=== PATIENT | female | born 1975 | race Caucasian/White ===

== ENCOUNTER 2019-01-26 07:55 | Emergency (ER) | payer BC ==
[2019-01-26] MEDS ORDERED: HYDROmorphone 0.5 MG/0.5 ML Syringe IVPUSH ONE ×2 (08:01→09:34)
[2019-01-26 08:03] VITALS: BP 134/87; PULSE 82
--- NOTE | 2019-01-26 08:06 | EDM.PDOC ---
ED HPI GENERAL MEDICAL PROBLEM - General Chief Complaint: Genitourinary Problem Stated Complaint: [facility] Time Seen by Provider: 01/26/19 07:56 Source of Information: Reports: Patient History Limitations: Reports: No Limitations - History of Present Illness INITIAL COMMENTS - FREE TEXT/NARRATIVE: 43-year-old female presents the ED per ambulance from [place]. He states she awoke around 0230 hours with pressure sensation in her left flank and upper abdomen on the left side. By 4:30 she was coming up in the position vomiting with severe pain. Emesis was summoned around 0630 hrs. She has received Toradol 30 mg IV Dilaudid 1 mg IV a Zofran 4 mg IV. At present her pain is down to a 4 out of 10. Still experiencing some colicky component to the pain. She has had renal colic 2 in the past one was possibly 10 years ago in the last time was 2 years ago. Told that there are several stones in the kidneys that may be problematic in the future. She has not noticed any hematuria in the urine. Onset: Today Onset Date: 01/26/19 Onset Time: 02:30 Duration: Hour(s): Location: Reports: Abdomen, Back (Left upper abdomen), Radiates to ( left flankradiates down to the bulbar and urethra. 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 (see below) (Paramedics have given her Toradol 30 mg IV followed by Dilaudid 1 mg IV and Zofran 4 mg IV.) Left Flank Pain Score (Numeric/FACES): 4 - Related Data Allergies Allergy/AdvReac Type Severity Reaction Status Date / Time No Known Allergies Allergy Verified 01/26/19 08:04 Home Meds: Home Meds Levothyroxine 75 mcg PO ACBREAKFAST 07/16/15 [History] traZODone 50 mg PO BEDTIME 07/16/15 [History] Ondansetron [Zofran] 4 mg BUCCAL Q6H PRN #8 tab 01/26/19 [Rx] Tamsulosin HCl [Flomax] 0.4 mg PO DAILY #4 cap.er.24h 01/26/19 [Rx] oxyCODONE HCl/Acetaminophen [Percocet 5-325 mg Tablet] 1 - 2 each PO Q4H PRN # 20 tablet 01/26/19 [Rx] Past Medical History Genitourinary History: Reports: Renal Calculus Endocrine/Metabolic History: Reports: Hypothyroidism - Past Surgical History Musculoskeletal Surgical History: Reports: Shoulder Surgery (Left shoulder surgery for repair of rotator cuff tear.) Social & Family History - Living Situation & Occupation Living situation: Reports: Occupation: Unemployed ED ROS GENERAL - Review of Systems Review Of Systems: See Below Constitutional: Reports: Malaise, Weakness, Fatigue, Decreased Appetite. Denies : Fever, Chills HEENT: Reports: No Symptoms Respiratory: Reports: No Symptoms Cardiovascular: Reports: No Symptoms Endocrine: Reports: Fatigue GI/Abdominal: Reports: Abdominal Pain (Left upper quadrant abdominal pain rating down towards the left groin and vulva.), Diarrhea (Stools 2 loose but not diarrhea), Decreased Appetite, Nausea, Vomiting (Did vomited 4 times of bilious material at home about 4:30 to 5:30.) : Reports: Flank Pain, Frequency. Denies: Dysuria (Left flank pain) Musculoskeletal: Reports: Back Pain Skin: Reports: No Symptoms (Left flank pain) Neurological: Reports: No Symptoms Psychiatric: Reports: No Symptoms Hematologic/Lymphatic: Reports: No Symptoms Immunologic: Reports: No Symptoms ED EXAM, GI/ABD - Physical Exam Exam: See Below Exam Limited By: No Limitations General Appearance: Alert, WD/WN, Mild Distress, Other (Still having a hard time holding still due to the pain in her left flank.) Eyes: Bilateral: Normal Appearance (No scleral icterus. No peripheral pallor) Throat/Mouth: Other (Mouth is mildly dry.) Respiratory/Chest: No Respiratory Distress, Lungs Clear, Normal Breath Sounds GI/Abdominal Exam: Soft, Non-Tender ( to palpation), No Organomegaly, No Mass, Pelvis Stable, Abnormal Bowel Sounds (Bowel sounds are fairly quiet sent in all 4 quadrants.), Other (Abdominal wall musculature is firm) Back Exam: Normal Inspection, CVA Tenderness (L) (Mild). No: CVA Tenderness (R) , Decreased Range of Motion Extremities: Normal Inspection, Normal Range of Motion, Non-Tender Neurological: Alert, Oriented, CN II-XII Intact, Normal Cognition, Normal Gait Psychiatric: Normal Affect, Normal Mood Skin Exam: Warm, Dry, Intact, Normal Color, No Rash Course - Vital Signs Last Recorded V/S: Last Vital Signs Temp 36.4 C 01/26/19 08:01 Pulse 82 01/26/19 08:01 Resp 18 01/26/19 08:01 BP 134/87 01/26/19 08:01 Pulse Ox 100 01/26/19 08:01 - Orders/Labs/Meds Orders: Active Orders 24 hr Category Date Time Status Abdomen Pelvis wo Cont [CT] Stat Exams 01/26/19 08:02 Taken Labs: Laboratory Tests 01/26/19 Range/Units 09:27 Urine Color Yellow (Yellow) Urine Appearance Clear (Clear) Urine pH 6.0 (5.0-8.0) Ur Specific [place] > or = 1.030 (1.005-1.030) Urine Protein 1+ H (Negative) Urine Glucose (UA) Negative (Negative) Urine Ketones Negative (Negative) Urine Occult Blood 3+ H (Negative) Urine Nitrite Negative (Negative) Urine Bilirubin Negative (Negative) Urine Urobilinogen 0.2 (0.2-1.0) Ur Leukocyte Esterase Negative (Negative) Urine RBC 10-20 H (0-5) /hpf Urine WBC 0-5 (0-5) /hpf Ur Squamous Epith Cells 5-10 H (0-5) /hpf Amorphous Sediment Few H (NOT SEEN) /hpf Urine Bacteria Moderate H (FEW) /hpf Hyaline Casts 0-5 (0-5) /lpf Urine Mucus Moderate H (FEW) /hpf Meds: Medications Discontinued Medications Generic Name Dose Route Start Last Admin Trade Name Freq PRN Reason Stop Dose Admin Hydromorphone HCl 0.5 mg 01/26/19 08:01 01/26/19 08:09 Dilaudid IVPUSH 01/26/19 08:02 0.5 mg ONETIME ONE Administration Hydromorphone HCl 0.5 mg 01/26/19 09:34 01/26/19 09:45 Dilaudid IVPUSH 01/26/19 09:35 0.5 mg ONETIME ONE Administration Sodium Chloride 1,000 mls @ 150 mls/hr 01/26/19 08:15 01/26/19 08:09 Normal Saline IV 150 mls/hr ASDIRECTED PAUL Administration Tamsulosin HCl 0.4 mg 01/26/19 10:04 Flomax PO 01/26/19 10:05 ONETIME ONE - Radiology Interpretation Free Text/Narrative:: 43-year-old female presents to the ED with acute onset of severe left flank upper abdominal pain about 0-30 hours this morning. Pain worsened by 4:30 and she began vomiting 3. By 6:30 she called the ambulance to bring her to [place]. Of note the roads are very bad at present with blowing snow and ice on the road ways. Current pain is 4-10. She has radiating pain down to the vulva and urethra. Plan IV normal saline 150 mils per hour. Will repeat Dilaudid 0.5 mg IV for further pain relief. She will be see 4 CT of the abdomen and pelvis per renal protocol. She denies any possibility of . Analysis performed becomes available. - Re-Assessments/Exams Free Text/Narrative Re-Assessment/Exam: 01/26/19 09:32 Patient has multiple calcifications within both renal parenchyma account for on the left and 5 on the right. I believe there is minimal hydronephrosis of the left kidney. The ureters are very difficult to identify due to her thin status. There are multiple calcifications in the pelvis many of them are phleboliths some of them are in leiomyoma of the uterus. I believe there is a very faint 2 mm stone in the left ureter distally. Is a large amount of stool throughout the colon as well. No sign of bowel obstruction. Liver pancreas spleen appear normal. Diverticuli without any obvious diverticulitis. There is also a 3.4 cm left ovarian cystic lesion which deserves follow-up in 6-8 weeks. I'm going to therefore wait for a urinalysis as clinically she is presenting with renal colic pain. Pain is currently a 6 out of 10. Will repeat Dilaudid 0.5 mg IV.Vrad reports no evidence of ureteric occlusion or hydronephrosis. 01/26/19 09:59: Urinalysis shows 1+ proteinuria and 3+ occult blood. Negative nitrates and negative leukocyte esterase. Are 10-20 RBCs per power field and 0- 5 WBCs. 5-10 squamous epithelials and moderate bacteria. I believe she has a 3 mm stone in the distal left ureter approximately 3 cm above the UVJ. Navid however did not feel there was any obstruction of the left ureter. She will be sent home with a strainer. I will give her Flomax 0.4 mg once daily for 5 days to facilitate stone passage with first tablet provided in the ED. Percocet tabs 06/29/24 one or 2 every 4-6 hours needed for pain relief. Zofran 4 mg under the tongue every 4 hours as needed for nausea relief. Departure - Departure Time of Disposition: 10:25 Disposition: Home, Self-Care 01 Condition: Fair Clinical Impression: Renal colic on left side, Kidney stone - Discharge Information *PRESCRIPTION DRUG MONITORING PROGRAM REVIEWED*: Not Applicable *COPY OF PRESCRIPTION DRUG MONITORING REPORT IN PATIENT DARYL: Not Applicable Prescriptions: Ondansetron [Zofran] 4 mg BUCCAL Q6H PRN #8 tab PRN Reason: nausea or vomiting oxyCODONE HCl/Acetaminophen [Percocet 5-325 mg Tablet] 1 - 2 each PO Q4H PRN # 20 tablet PRN Reason: pain relief. Tamsulosin HCl [Flomax] 0.4 mg PO DAILY #4 cap.er.24h Instructions: Renal Colic, [id number] Referrals: Bhargavi Plata PA-C [Primary Care Provider] - Forms: ED Department Discharge Additional Instructions: Evaluation the emergency room this morning in regards to development of severe left flank and chela-abdominal pain rating down towards the vulva and urethra overnight. The CT scan suggests a 3 mm stone that has partially 3 cm to travel to enter the urinary bladder. This means that he could have pain off and on throughout the next couple of days until stone enters the urinary bladder which time pain would be gone. The urine does not show any signs of infection at this time. Treatment is to take Flomax 0.4 mg tablet once daily every morning for the next 4 days or until stone has passed. First tablet provided in the ED today. In the emergency department with intravenous fluids and Dilaudid 0.5 mg 2 doses. Paramedics had given you Toradol 30 mg IV and Dilaudid 1 mg IV and Zofran 4 mg IV. Treatment at home is to strain the urine until stone is noted to have passed for sure. It can be bilious colors but typically is 10 in color. It should feel like a pebble. Percocet tabs 5/3/25 milligrams one or 2 every 4- 6 hours needed for pain relief. Suggest Zofran 4 mg under the tongue at the same time to prevent any nausea vomiting from the effect of the pain medication wore the pain itself. Follow-up if the pain is uncontrolled or nausea and vomiting prevents ability to keep down medication. Follow-up would also be required if the stone has not been noticed to have passed within the next 2-1/2 weeks. Follow-up with urology services if this occurs - My Orders Last 24 Hours: My Active Orders 01/26/19 08:02 Abdomen Pelvis wo Cont [CT] Stat - Assessment/Plan Last 24 Hours: My Active Orders 01/26/19 08:02 Abdomen Pelvis wo Cont [CT] Stat
[2019-01-26] MEDS ORDERED: Sodium Chloride 0.9% 1,000 ML IV SCH (08:15)
[2019-01-26] MEDS ORDERED: Tamsulosin 0.4 MG Cap.ER PO ONE (10:04)
--- NOTE | 2019-01-27 09:57 | CT ---
CT abdomen and pelvis Technique: Multiple axial sections were obtained from above the dome of the diaphragm inferiorly through the pubic symphysis. Intravenous and oral contrast was not utilized. Study has been performed as a ureteral stone protocol. Comparison: No prior abdominal imaging is available. Findings: Numerous nonobstructing calculi are seen within both kidneys. These nonobstructing calculi measure less than 5 mm. No ureteral dilatation is seen. Numerous calcifications are seen within the pelvis. These pelvic calcifications are most likely due to phleboliths as no ureteral dilatation is appreciated but difficult to completely exclude a nonobstructing distal ureteral stone. Visualized lung bases show nothing acute. Noncontrast appearance of the liver and spleen shows no focal abnormality. Adrenal glands show no nodule. Pancreas is within normal limits. Aorta shows atherosclerotic calcification which continues into the iliac vessels without aneurysm. Gallbladder contains no calcified gallstones. No retroperitoneal adenopathy or mesenteric abnormalities are seen. Cyst is noted within the left ovary measuring approximately 3.3 cm in size. IUD is present within the endometrial cavity of the uterus. No free fluid or inflammatory change is appreciated. Appendix is not visualized with certainty. Slight increased stool within the colon is noted. Bone window settings were reviewed which shows the osseous structures to appear within normal limits for the patient's age. Impression: 1. Numerous nonobstructing calculi within both kidneys. 2. No ureteral dilatation is seen. As mentioned above, multiple calcifications are seen within the pelvis which are most likely due to phleboliths although it difficult to completely exclude the possibility of a nonobstructing distal ureteral stone. Formal intravenous urogram would be needed to further evaluate if clinically indicated. 3. 3.3 cm cyst within the left ovary which is likely incidental. 4. Mild increased stool within the colon and other findings believed to be incidental. Diagnostic code #3 This report was dictated in [place] [employer] Time
== END 2019-01-26 10:32 | disposition home or self-care (01) ==
LOC: JD.ED 07:55
DX: N20.0 Calculus of kidney (principal); E03.9 Hypothyroidism, unspecified; Z79.890 Hormone replacement therapy
CPT/HCPCS: 74176; 81001; 96361; 96374; 96376; 99285; J1170; J7040; 99284; J7030

== ENCOUNTER 2021-06-23 20:40 | Emergency (ER) | payer BC ==
[2021-06-23 20:48] VITALS: BP 168/99; PULSE 63
[2021-06-23] MEDS ORDERED: Ondansetron 4 MG/2 ML SDV IVPUSH ONE (20:48)
[2021-06-23] MEDS ORDERED: Sodium Chloride 0.9% 10 ML Syringe FLUSH PRN (20:48)
[2021-06-23] MEDS ORDERED: HYDROmorphone 1 MG/ML Syringe IVPUSH STA (20:48)
[2021-06-23] MEDS ORDERED: Sodium Chloride 0.9% 1,000 ML IV SCH (21:00)
[2021-06-23] MEDS ORDERED: Tamsulosin 0.4 MG Cap.ER PO ONE (21:30)
[2021-06-23] MEDS ORDERED: Ketorolac 30 MG/ML SDV IVPUSH ONE (21:54)
[2021-06-23] MEDS ORDERED: Levofloxacin 750 MG Tab PO ONE (22:23)
[2021-06-23] MEDS ORDERED: Acetaminophen/oxyCODONE 325-5 MG Tab PO ONE (22:36)
[2021-06-23] MEDS ORDERED: Promethazine 25 MG Tab PO ONE (22:37)
== END 2021-06-23 23:08 | disposition home or self-care (01) ==
LOC: JD.ED 20:40
DX: N13.2 Hydronephrosis with renal and ureteral calculous obstruction (principal); J18.9 Pneumonia, unspecified organism; E78.00 Pure hypercholesterolemia, unspecified; I10 Essential (primary) hypertension; J44.9 Chronic obstructive pulmonary disease, unspecified; E03.9 Hypothyroidism, unspecified; Z72.0 Tobacco use; Z79.899 Other long term (current) drug therapy
CPT/HCPCS: 36415; 74176; 80053; 81001; 81025; 83690; 85025; 86140; 87086; 96374; 96375; 99284; A9270; J1170; J1885; J2405; J7030; J8597

== ENCOUNTER 2021-09-07 06:50 | Day surgery (SDC) | payer BC ==
[~2021-09-07 06:50] MED LIST: Lactated Ringers 1,000 ML IV SCH; Lidocaine 1%/Sod Bicarbonate in NS 8.4% 1 ML Syringe IDERM PRN; Sodium Chloride 0.9% 10 ML Syringe FLUSH PRN; Sodium Chloride 0.9% 10 ML Syringe FLUSH SCH
[2021-09-07] MEDS ORDERED: Lidocaine 1% with EPINEPHrine 1:100,000 20 ML MDV ONE (07:06)
[2021-09-07] MEDS ORDERED: Bupivacaine 0.5% 30 ML SDV ONE (07:07)
[2021-09-07] MEDS ORDERED: Sodium Chloride 0.9% 50 ML SDV ONE (07:07)
[2021-09-07] MEDS ORDERED: fentaNYL 100 MCG/2 ML SDV IVPUSH PRN (07:18)
[2021-09-07] MEDS ORDERED: Ondansetron 4 MG/2 ML SDV IVPUSH PRN (07:18)
[2021-09-07] MEDS ORDERED: Albuterol/Ipratropium 3.0-0.5 MG/3 ML Neb Soln NEB PRN (07:26)
[2021-09-07] MEDS ORDERED: Scopolamine 1.5 MG Transdermal Patch TRDERM ONE (07:26)
[2021-09-07] MEDS ORDERED: Propofol 200 MG/20 ML SDV ONE (07:44)
[2021-09-07] MEDS ORDERED: fentaNYL 250 MCG/5 ML SDV ONE (07:44)
[2021-09-07] MEDS ORDERED: Midazolam 1 MG/ML 2 ML SDV ONE (07:44)
[2021-09-07] MEDS ORDERED: Lidocaine 1% 6 ML ONE (07:45)
[2021-09-07] MEDS ORDERED: Rocuronium 50 MG/5 ML Vial ONE ×2 (07:45→09:43)
[2021-09-07] MEDS ORDERED: Dexamethasone 4 MG/ML 5 ML MDV ONE (07:48)
[2021-09-07] MEDS ORDERED: Ondansetron 4 MG/2 ML SDV ONE (07:48)
[2021-09-07] MEDS ORDERED: ceFAZolin 2 GM Vial ONE (07:49)
[2021-09-07] MEDS ORDERED: Ketorolac 30 MG/ML SDV ONE (09:38)
[2021-09-07] MEDS ORDERED: Lactated Ringers 1,000 ML ONE (09:40)
[2021-09-07] MEDS ORDERED: Neostigmine Methylsulfate 10 MG/10 ML MDV ONE (09:40)
[2021-09-07] MEDS ORDERED: Ketamine 500 mg/10 ML MDV ONE (09:44)
[2021-09-07] MEDS ORDERED: HYDROmorphone 0.5 MG/0.5 ML Syringe ONE (09:57)
[2021-09-07] MEDS: HYDROmorphone 0.5 MG/0.5 ML Syringe IVPUSH PRN ×2 (12:28→13:33)
[2021-09-07] MEDS ORDERED: Acetaminophen/oxyCODONE 325-5 MG Tab PO PRN (14:29)
[2021-09-07 16:29] VITALS: BP 144/85; PULSE 61
== END 2021-09-07 15:13 | disposition home or self-care (01) ==
LOC: JD.SDS 06:50
PROVIDERS: ATTEND Obstetrics & Gynecology
DX: N80.0 Endometriosis of uterus (principal); N80.2 Endometriosis of fallopian tube; J44.9 Chronic obstructive pulmonary disease, unspecified; E03.9 Hypothyroidism, unspecified; G43.909 Migraine, unspecified, not intractable, without status migrainosus; E78.00 Pure hypercholesterolemia, unspecified; I10 Essential (primary) hypertension; Z98.890 Other specified postprocedural states; Z87.891 Personal history of nicotine dependence; Z88.5 Allergy status to narcotic agent; Z79.890 Hormone replacement therapy
CPT/HCPCS: 36415; 58552; 81025; 85025; 86850; 86900; 86901; A9270; J0690; J1100; J1170; J2250; J2405; J2704; J2710; J3010; J3490; J7120; 00944; J1885; J7620-GY

== ENCOUNTER 2022-12-13 07:10 | Emergency (ER) | payer BC ==
[2022-12-13] MEDS ORDERED: HYDROmorphone 0.5 MG/0.5 ML Syringe IVPUSH ONE ×2 (07:24→09:08)
[2022-12-13] MEDS ORDERED: Metoclopramide 10 MG/2 ML SDV IVPUSH ONE (07:24)
[2022-12-13] MEDS ORDERED: Ketorolac 30 MG/ML SDV IVPUSH SCH (07:30)
[2022-12-13] MEDS ORDERED: Dextrose 5%-0.9% NaCl 1,000 ML IV SCH (07:30)
[2022-12-13 08:15] LABS: APPEARANCE,URINE CLEAR (Clear); BILIRUBIN,URINE NEGATIVE (Negative); COLOR,URINE YELLOW (Yellow); GLUCOSE,URINE NEGATIVE (Negative); KETONES,URINE NEGATIVE (Negative); LEUKOCYTE ESTERASE,URINE NEGATIVE (Negative); NITRITE,URINE NEGATIVE (Negative); OCCULT BLOOD,URINE 2+ (Negative); PROTEIN,URINE NEGATIVE (Negative); UROBILINOGEN,URINE 0.2 (0.2-1.0)
[2022-12-13] MEDS ORDERED: Ondansetron 4 MG/2 ML SDV IVPUSH ONE (09:15)
[2022-12-13 09:22] LABS: BACTERIA,URINE FEW /hpf (FEW); EPITHELIAL CELLS,URINE 0-5 /hpf (0-5); MUCUS,URINE FEW /hpf (FEW); WBC,URINE 0-5 /hpf (0-5)
[2022-12-13 10:54] VITALS: BP 125/72; PULSE 71
== END 2022-12-13 11:00 | disposition home or self-care (01) ==
LOC: EDBD 07:10 → MERGE 07:10 → JD.ED 07:10
DX: N23 Unspecified renal colic (principal)
CPT/HCPCS: 74176; 81001; 96361; 96374; 96375; 96376; 99285; J1170; J1885; J2405; J2765; J7042; 99284

== ENCOUNTER 2024-09-24 14:32 | Emergency (ER) | payer BC ==
[2024-09-24 15:01] LABS: BASOPHILS ABSOLUTE AUTO 0.1 K/mm3 (0.0-0.2); BASOPHILS PERCENT AUTO 0.7 % (0.0-1.0); EOSINOPHILS ABSOLUTE AUTO 0.1 K/mm3 (0.0-0.4); EOSINOPHILS PERCENT AUTO 1.4 % (0.0-6.0); IMMATURE GRAN ABSOLUTE AUTO 0.02 K/mm3 (0.00-0.05); IMMATURE GRAN PERCENT AUTO 0.3 % (0.0-0.4); LYMPHOCYTES ABSOLUTE AUTO 1.6 K/mm3 (1.0-4.8); LYMPHOCYTES PERCENT AUTO 20.9 % (24.0-44.0); MEAN PLATELET VOLUME 9.6 fl (9.4-12.3); MONOCYTES ABSOLUTE AUTO 0.5 K/mm3 (0.0-0.8); MONOCYTES PERCENT AUTO 6.0 % (0.0-8.0); NEUTROPHILS ABSOLUTE AUTO 5.4 K/mm3 (1.8-7.7); NEUTROPHILS PERCENT AUTO 70.7 % (41.0-71.0); NRBC ABSOLUTE 0.00 (0.00-0.02); NRBC PERCENT 0.0 % (0.0-0.2); PLATELET COUNT,PLT 291 K/mm3 (150-400); RED BLOOD CELL COUNT 4.20 M/mm3 (4.10-5.30); WHITE BLOOD CELL COUNT,WBC 7.66 K/mm3 (3.9-11.3)
[2024-09-24 15:30] LABS: A/G RATIO 1.6 (1-2); ALANINE AMINOTRANSFERASE,ALT 40.0 U/L (14-59); ASPARTATE AMNIOTRANSFERASE,AST 20.0 U/L (15-37); BILIRUBIN TOTAL 0.4 mg/dL (0.2-1.0); BLOOD UREA NITROGEN,BUN 11.0 mg/dL (7-18); CARBON DIOXIDE,CO2 25.0 mEq/L (21-32); CHLORIDE,CL 107.0 mEq/L (98-107); CREATINE KINASE,CK 239.0 U/L (26-192); CREATININE 0.7 mg/dL (0.55-1.02); EST CRCL DRUG DOSING (CG) 80.55 mL/min; ESTIMATED GFR 105.0 mL/min (>60); GLUCOSE RANDOM 94.0 mg/dL (70-99); POTASSIUM,K 3.6 mEq/L (3.5-5.1); PROTEIN TOTAL,TP 6.2 g/dl (6.4-8.2); SODIUM,NA 143.0 mEq/L (136-145); TROPONIN I HIGH SENSITIVITY 10.0 pg/mL (<=51)
[2024-09-24 15:31] LABS: ETHANOL BLOOD MEDICAL 0.0 gm% (0.00)
[2024-09-24 17:26] VITALS: BP 133/91; PULSE 52
== END 2024-09-24 17:15 | disposition home or self-care (01) ==
LOC: JD.ED 14:32
DX: R07.89 Other chest pain (principal); E83.42 Hypomagnesemia; I10 Essential (primary) hypertension; E78.00 Pure hypercholesterolemia, unspecified; J44.9 Chronic obstructive pulmonary disease, unspecified; E03.9 Hypothyroidism, unspecified; F17.200 Nicotine dependence, unspecified, uncomplicated; Z87.11 Personal history of peptic ulcer disease; Z79.51 Long term (current) use of inhaled steroids; Z79.890 Hormone replacement therapy; Z79.899 Other long term (current) drug therapy
CPT/HCPCS: 36415; 71045; 80053; 80307; 82550; 83690; 83735; 83880; 84484; 85025; 93005; 96365; 99285; J3475; 93010; 99283